=== PATIENT | male | born 1945 | race Caucasian/White ===

== ENCOUNTER 2020-02-08 11:13 | Outpatient (REF) | payer MEDICARE, OTHER, SELFPAY ==
[2020-02-08 12:00] LABS: Estimated Average Glucose 108 mg/dL; Hemoglobin A1c % 5.4 %
[2020-02-08 12:26] LABS: Alanine Aminotransferase 22 U/L (0-40); Albumin Level 4.4 g/dL (3.5-5.0); Alkaline Phosphatase 94 U/L (39-117); Aspartate Amino Transferase 47 U/L (5-37); Bilirubin Direct 0.4 mg/dL (0.0-0.5); Bilirubin Total 1.1 mg/dL (0.0-1.0); Cholesterol 143 mg/dL; Glucose Fasting 106 mg/dL (60-99); HDL Cholesterol 38 mg/dL; LDL Cholesterol Calculated 87 mg/dl; Total Protein 6.8 g/dL (6.5-8.0); Triglycerides 92 mg/dL
== END 2020-02-08 11:14 | disposition home or self-care (01) ==
LOC: HO.LDS 11:13
PROVIDERS: Visit Provider Internal Medicine
DX: R73.03 Prediabetes (principal); E78.00 Pure hypercholesterolemia, unspecified; I10 Essential (primary) hypertension; N40.0 Benign prostatic hyperplasia without lower urinary tract symptoms; R97.20 Elevated prostate specific antigen [PSA]; Z12.5 Encounter for screening for malignant neoplasm of prostate
CPT/HCPCS: 36415; 80061; 80076; 82947; 83036

== ENCOUNTER 2020-08-08 11:09 | Outpatient (REF) | payer MEDICARE, OTHER, SELFPAY ==
[2020-08-08 11:34] LABS: MANUAL DIFF FLAG NO
[2020-08-08 12:06] LABS: Basophils Percent Auto 0.5 % (0-2); Eosinophils Absolute Auto 0.1 X10*3/uL (0.0-0.4); Eosinophils Percent Auto 2.4 % (0-4); Hematocrit 48.3 % (42-52); Hemoglobin 15.9 g/dl (14.0-18.0); Imm Gran Abs Auto 0.02 X10*3/uL (0.00-0.03); Imm Gran Pct Auto 0.3 % (0.0-0.4); Lymphocytes Absolute Auto 1.5 X10*3/uL (1.2-4.9); Lymphocytes Percent Auto 26.7 % (20-40); Mean Corpuscular HGB Conc 32.9 g/dl (31.0-36.0); Mean Corpuscular Hemoglobin 30.7 pg (27.0-33.0); Mean Corpuscular Volume 93.2 fL (80-98); Mean Platelet Volume 10.2 fL (9.4-12.4); Monocytes Absolute Auto 0.6 X10*3/uL (0.1-1.2); Monocytes Percent Auto 9.9 % (2-11); Neutrophils Absolute Auto 3.4 X10*3/uL (2.0-8.3); Neutrophils Percent Auto 60.2 % (45-73); Platelet Count 193 X10*3/uL (160-400); Red Blood Count 5.18 X10*6/uL (4.60-5.80); Red Cell Distribution Width 12.4 % (11.0-16.0); White Blood Count 5.7 X10*3/uL (4.8-10.8)
[2020-08-08 12:37] LABS: Glucose Urine UA NEG (NEG); Leukocyte Esterase Urine NEG (NEG); Nitrite Urine NEG (NEG); Specific Gravity - Urine 1.025 (1.005-1.025); Urine Blood NEG (NEG); Urine Ketones NEG (NEG); Urine Protein NEG (NEG-TRACE)
[2020-08-08 12:41] LABS: Alanine Aminotransferase 30 U/L (0-40); Albumin Level 4.6 g/dL (3.5-5.0); Alkaline Phosphatase 99 U/L (39-117); Anion Gap 13 (12-20); Appearance Urine CLEAR; Aspartate Amino Transferase 45 U/L (5-37); Bilirubin Total 0.7 mg/dL (0.0-1.0); Blood Urea Nitrogen 15 mg/dL (9-16); Calcium 9.2 mg/dL (8.4-10.2); Carbon Dioxide 31 mmol/L (22-29); Chloride 101 mmol/L (96-108); Cholesterol 215 mg/dL; Color Urine DARK YELLOW; Estimated Glomerular Filt Rate > 60; Glucose Fasting 95 mg/dL (60-99); HDL Cholesterol 47 mg/dL; LDL Cholesterol Calculated 123 mg/dl; Potassium 4.4 mmol/L (3.3-5.1); Sodium 141 mmol/L (135-145); Total Protein 7.6 g/dL (6.5-8.0); Triglycerides 226 mg/dL
[2020-08-08 12:51] LABS: PSA,Total (Free>4and<10) 2.25 ng/mL (0.00-4.00)
[2020-08-08 12:59] LABS: Creatinine Urine 248.74 mg/dL; Microalbum/Creatinine Ratio Ur 11.6 ug/mg cr
[2020-08-08 13:03] LABS: Reflex LDLD? No
[2020-08-08 13:15] LABS: Estimated Average Glucose 97 mg/dL
== END 2020-08-08 11:10 | disposition home or self-care (01) ==
LOC: HO.LNP 11:09
PROVIDERS: Visit Provider Internal Medicine
DX: Z00.00 Encounter for general adult medical examination without abnormal findings (principal); Z12.5 Encounter for screening for malignant neoplasm of prostate; I10 Essential (primary) hypertension; R73.03 Prediabetes; R97.20 Elevated prostate specific antigen [PSA]; E78.00 Pure hypercholesterolemia, unspecified
CPT/HCPCS: 80053; 80061; 81003; 82043; 83036; 84153; 85025

== ENCOUNTER 2021-02-09 10:34 | Outpatient (REF) | payer MEDICARE, OTHER, SELFPAY ==
[2021-02-09 11:00] LABS: Estimated Average Glucose 120 mg/dL; Hemoglobin A1c % 5.8 %
[2021-02-09 11:07] LABS: Alanine Aminotransferase 36 U/L (0-40); Alkaline Phosphatase 67 U/L (39-117); Aspartate Amino Transferase 67 U/L (5-37); Bilirubin Direct 0.3 mg/dL (0.0-0.5); Bilirubin Total 0.8 mg/dL (0.0-1.0); Cholesterol 201 mg/dL; Glucose Fasting 100 mg/dL (60-99); HDL Cholesterol 36 mg/dL; LDL Cholesterol Calculated 115 mg/dl; Total Protein 6.6 g/dL (6.5-8.0); Triglycerides 253 mg/dL
[2021-02-09 11:37] LABS: Reflex LDLD? No
== END 2021-02-09 10:35 | disposition home or self-care (01) ==
LOC: HO.LNP 10:34
PROVIDERS: Visit Provider Internal Medicine
DX: E78.00 Pure hypercholesterolemia, unspecified (principal); R73.03 Prediabetes
CPT/HCPCS: 80061; 80076; 82947; 83036